=== PATIENT | male | born 1985 | race Caucasian/White ===

== ENCOUNTER 2024-10-16 14:30 | Outpatient (CLI) | payer BC | END 2024-10-16 14:31 | disposition home or self-care (01) | LOC: SCSMRI 14:30 | PROVIDERS: ATTEND Pediatrics | DX: M89.9 Disorder of bone, unspecified (principal); G54.4 Lumbosacral root disorders, not elsewhere classified; G83.4 Cauda equina syndrome | CPT/HCPCS: 72158 ==